=== PATIENT | female | born 1990 | race Caucasian/White ===

== ENCOUNTER 2018-04-18 23:40 | Emergency (ER) | payer BC ==
[~2018-04-18] VITALS: Ht 162.6 cm; Wt 61.8 kg
[2018-04-18 23:49] VITALS: TEMP 97.1
[2018-04-18] MEDS ORDERED: XANAX 0.5MG0.5 MG PO (23:59)
[2018-04-19 00:24] LABS: BASO # 0.1 (0.0-0.2); BASO % 0.7 % (0.0-2.0); EOS # 0.2 (0.0-0.7); EOS % 1.5 % (0-4.0); GRAN # 6.2 (1.4-6.5); GRAN % 58.2 % (42.2-75.2); HEMOGLOBIN 12.8 g/dl (12.5-16.0); LYMPH # 3.4 (1.2-3.4); LYMPH % 31.8 % (20.0-51.0); MEAN CELL VOLUME 91 fl (80.0-100.0); MEAN CORPUSCULAR HEMOGLOBIN 32 pg (27.0-31.0); MEAN CORPUSCULAR HGB CONC 35 g/dl (33.0-37.0); MEAN PLATELET VOLUME 10.7 fl (7.4-10.4); MONO # 0.8 (0.1-0.6); MONO % 7.5 % (1.7-9.3); PLATELET COUNT 270 K/mm3 (130-400); RED BLOOD COUNT 4.01 M/mm3 (4.10-5.30); REDCELL DISTRIBUTION WIDTH-CV 11.6 % (11.5-14.5)
[2018-04-19 00:34] LABS: HEMATOCRIT 36.3 % (37.0-47.0)
[2018-04-19 00:37] LABS: ALANINE AMINOTRANSFERASE 35 U/L (9-52); ALBUMIN 4.5 gm/dL (3.5-5.0); ALKALINE PHOSPHATASE 71 U/L (50-136); ANION GAP 10 mmol/L (7-16); AST,SGOT 22 U/L (15-37); BILIRUBIN,TOTAL 0.3 mg/dL (0.0-1.0); BLOOD UREA NITROGEN 19 mg/dL (7-17); CARBON DIOXIDE 19 mmol/L (22-30); CHLORIDE 111 mmol/L (98-107); CREATININE, serum 0.83 mg/dL (0.52-1.25); GLUCOSE 97 mg/dL (74-106); LIPASE 200 U/L (23-300); POTASSIUM 3.3 mmol/L (3.4-5.0); SODIUM 141 mmol/L (137-145); TOTAL PROTEIN 7.5 gm/dL (6.4-8.2)
[2018-04-19 00:48] LABS: TROPONIN-I < 0.012 ng/mL (0.000-0.034)
[2018-04-19 02:30] VITALS: BP 107/58; PULSE 79
== END 2018-04-19 02:46 | disposition home or self-care (01) ==
LOC: COL.ER 23:40
PROVIDERS: Emergency Medicine
DX: R07.9 Chest pain, unspecified (principal); F41.9 Anxiety disorder, unspecified; Z88.5 Allergy status to narcotic agent; Z88.8 Allergy status to other drugs, medicaments and biological substances
CPT/HCPCS: J1630; J1885; J2060; J7030; Q9967

== ENCOUNTER 2020-01-01 13:56 | Emergency (ER) | payer BC ==
[~2020-01-01] VITALS: Ht 152.4 cm; Wt 59.1 kg
[~2020-01-01 13:56] MED LIST: XANAX 0.5MG0.5 MG PO
[2020-01-01 14:01] VITALS: TEMP 98.4
[2020-01-01] MEDS ORDERED: CELEXA 20MG20 MG/TAB PO (15:22)
[2020-01-01] MEDS ORDERED: BENADRYL25 M2 PO (15:23)
[2020-01-01 15:35] LABS: BASO # 0.1 (0.0-0.2); BASO % 0.7 % (0.0-2.0); EOS # 0.1 (0.0-0.7); EOS % 1.7 % (0-4.0); GRAN # 5.2 (1.4-6.5); GRAN % 62.7 % (42.2-75.2); HEMATOCRIT 37.5 % (37.0-47.0); HEMOGLOBIN 12.5 g/dl (12.5-16.0); LYMPH # 2.3 (1.2-3.4); LYMPH % 28.4 % (20.0-51.0); MEAN CELL VOLUME 95 fl (80.0-100.0); MEAN CORPUSCULAR HEMOGLOBIN 32 pg (27.0-31.0); MEAN CORPUSCULAR HGB CONC 33 g/dl (33.0-37.0); MEAN PLATELET VOLUME 10.9 fl (7.4-10.4); MONO # 0.5 (0.1-0.6); MONO % 6.3 % (1.7-9.3); PLATELET COUNT 246 K/mm3 (130-400); RED BLOOD COUNT 3.96 M/mm3 (4.10-5.30); REDCELL DISTRIBUTION WIDTH-CV 12.2 % (11.5-14.5)
[2020-01-01 15:37] LABS: COLLECTION METHOD CLEAN CATCH
[2020-01-01 15:43] LABS: PH 8 (5-8); SQUAMOUS EPITHELIAL 0-2 /hpf; URINE APPEARANCE Clear; URINE BACTERIA None Seen /hpf; URINE BILIRUBIN Negative (NEGATIVE); URINE BLOOD 1+ (NEGATIVE); URINE COLOR Straw; URINE GLUCOSE Negative (NEGATIVE); URINE KETONE Negative (NEGATIVE); URINE LEUKOCYTE ESTERASE Negative (NEGATIVE); URINE NITRATE Negative (NEGATIVE); URINE PROTEIN(semi-quant) Negative (NEGATIVE); URINE RBC 0-2 /hpf; URINE UROBILINOGEN Negative (NEGATIVE)
[2020-01-01 15:44] LABS: ALANINE AMINOTRANSFERASE 16 U/L (4-34); ALBUMIN 4.6 gm/dL (3.5-5.0); ALKALINE PHOSPHATASE 74 U/L (50-136); ANION GAP 8 mmol/L (7-16); AST,SGOT 27 U/L (15-37); BILIRUBIN,TOTAL 0.9 mg/dL (0.0-1.0); BLOOD UREA NITROGEN 13 mg/dL (7-17); CALCIUM 9.7 mg/dL (8.4-10.2); CARBON DIOXIDE 21 mmol/L (22-30); CHLORIDE 107 mmol/L (98-107); CREATININE, serum 0.82 (0.52-1.25); GLUCOSE 95 mg/dL (74-106); POTASSIUM 3.8 mmol/L (3.4-5.0); SODIUM 137 mmol/L (137-145)
[2020-01-01 15:48] LABS: C-REACTIVE PROTEIN < 0.5 mg/dL (0.0-0.9)
[2020-01-01 15:56] LABS: TROPONIN-I < 0.012 ng/mL (0.000-0.035)
[2020-01-01] MEDS ORDERED: NEXIUM 20MG20 MG PO (18:21)
[2020-01-01] MEDS ORDERED: PREDNISONE20 MG PO (18:21)
[2020-01-01] MEDS ORDERED: PROAIR HFA0.09 MG/AC IH (18:22)
[2020-01-01 18:55] VITALS: BP 122/81; PULSE 54
== END 2020-01-01 18:55 | disposition home or self-care (01) ==
LOC: COL.ER 13:56
PROVIDERS: Emergency Medicine
DX: R06.00 Dyspnea, unspecified (principal)
CPT/HCPCS: C9113; J2060; J7030; J7512; Q9967

== ENCOUNTER → 2020-01-08 | Outpatient (CLI) | payer BC ==
[~2020-01-08] MED LIST changes: +BENADRYL25 M2 PO; +CELEXA 20MG20 MG/TAB PO; +NEXIUM 20MG20 MG PO; +PREDNISONE20 MG PO; +PROAIR HFA0.09 MG/AC IH
== END ==
LOC: BHSO 14:00
DX: F43.10 Post-traumatic stress disorder, unspecified (principal)

== ENCOUNTER → 2020-01-16 | Outpatient (CLI) | payer BC | LOC: BHSO 16:03 | DX: F43.10 Post-traumatic stress disorder, unspecified (principal) ==